=== PATIENT | female | born 1975 | race Caucasian/White ===

== ENCOUNTER → 2016-09-01 | Day surgery (SDC) | payer OTHER ==
[~2016-09-01] VITALS: Ht 152.4 cm; Wt 85.3 kg
[~2016-09-01] MED LIST: ATORVASTATIN CA10 M1 PO; FERROUS SULFAT325 M3 PO; METFORMIN HCL500 M3 PO
[2016-09-01 06:19] LABS: ABSOLUTE BASOPHIL COUNT 0.1 /CUMM (0.0-0.2); ABSOLUTE EOSINOPHIL COUNT 0.3 /CUMM (0.0-0.7); ABSOLUTE GRANULOCYTE CT 11.9 /CUMM (1.4-6.5); ABSOLUTE LYMPH COUNT 2.8 /CUMM (1.2-3.4); ABSOLUTE MONOCYTE COUNT 0.9 /CUMM (0.10-0.60); BASOPHIL % 0.4 % (0.0-2.0); GRANULOCYTE % 74.6 % (42.2-75.2); HEMATOCRIT 30.7 % (37-47); MEAN CORPUSCULAR HGB 28.1 PG (27.0-31.0); MEAN CORPUSCULAR HGB CONC 33.1 G/DL (33.0-37.0); MEAN CORPUSCULAR VOLUME 84.9 FL (81.0-99.0); MEAN PLATELET VOLUME 7.8 FL (7.4-10.4); RBC DISTRIBUTION WIDTH 19.2 % (11.5-14.5); RED BLOOD CELL CT 3.62 /CUMM (4.20-5.40)
[2016-09-01 06:25] LABS: PLATELET COUNT 446 /CUMM (130-400)
--- NOTE | 2016-09-01 09:04 | Operative Report ---
Operative/Inv Procedure Report Surgery Date: 09/01/16 Name of Procedure: Excision of chin lesion 3 cm, with local rotation flap 50 cm Pre-Operative Diagnosis: Soft tissue deformity chronic chin Post-Operative Diagnosis: Same Estimated Blood Loss: scant Surgeon/Station Chief: ZAKIA DOVER,BRITTNEE Ervin Anesthesia: laryngeal mask airway Operative/Procedure Note Note: Patient was counseled extensively over a very long period of time in regards to treatment of its soft tissue deformity of the chin. The patient had multiple prolonged corticosteroid injections in the area from unknown pathology. Previous biopsies have been unable to identify a diagnosis. The patient is actively using tobacco. We discussed a local rotation flap after excision of the lesion. I discussed this might provide long-term numbness in the chin and lower lip area. Stab the process can return since it is not completely been able to be diagnosed. The patient is very willing to proceed with the flaps and she really has a difficult time accepting the deformity. I discussed extensively during the use of tobacco products but she is clearly been unable to do so as this is not the first attempt at repair. We talked about definite visible permanent scarring possibly unsightly or symptomatic. We talked about infection bleeding seroma formed consent was signed she was brought to the operating room placed supine on the table. Venodyne boots are placed and laryngeal mask anesthesia was established intravenous antibiotics were given. Flap was developed extending it through the submental crease after excising the lesion. 3 layer closure was carried out. Rotation flap dimensions as described above.
== END ==
LOC: STS 08-04 07:00
PROVIDERS: Surgery Plastic and Reconstructive Surgery
DX: L90.5 Scar conditions and fibrosis of skin (principal); F17.200 Nicotine dependence, unspecified, uncomplicated
CPT/HCPCS: 36415; 81025; 88305; J0690; J2250